=== PATIENT | female | born 1985 | race Caucasian/White ===

== ENCOUNTER 2016-07-14 14:29 | Emergency (ER) | payer OTHER | END 2016-07-14 17:10 | disposition home or self-care (01) | LOC: ER 14:29 | DX: L02.413 Cutaneous abscess of right upper limb (principal); F17.210 Nicotine dependence, cigarettes, uncomplicated; Z88.5 Allergy status to narcotic agent; Z88.2 Allergy status to sulfonamides | CPT/HCPCS: 36415; 96372; J1885 ==